=== PATIENT | male | born 1995 ===

== ENCOUNTER 2017-02-18 12:42 | Emergency (ER) | payer SELFPAY ==
[2017-02-18 12:54] VITALS: RESP 16; TEMP 99; O2SAT 97
--- NOTE | 2017-02-18 13:38 | EDPHY ---
H & P Time Seen by Provider: 02/18/17 13:30 HPI/ROS: CHIEF COMPLAINT: Chin laceration HISTORY OF PRESENT ILLNESS: Patient tripped and fell down landing on his chin at around midnight. He presents now for evaluation of his laceration. No jaw pain or difficulty chewing. No headache or neck or back pain. No loss of consciousness and no nausea vomiting. REVIEW OF SYSTEMS: Eye: no change in vision ENT: no sore throat Cardiac: no chest pain or syncope Pulmonary: no cough or SOB Abdomen: no vomiting, diarrhea, abdominal pain Musculoskeletal: no back pain Skin: HPI, chin laceration acne Neuro: no headache Constitutional: no fever : no urinary symptoms A comprehensive 10 point review of systems is otherwise negative aside from elements mentioned in the history of present illness. PAST MEDICAL HISTORY: Negative Social history: Nonsmoker General Appearance: Alert and conversant, cooperative. Eyes: No scleral icterus. ENT, Mouth: Normal mucous membranes. Jaw nontender. No intraoral bleeding. No raccoon eyes or Briggs sign. Respiratory: Normal respiratory effort, breath sounds equal, lungs are clear to auscultation. Cardiovascular: Regular rate and rhythm. Gastrointestinal: Abdomen is soft and non tender. Neurological: Alert and oriented x3. Normally conversant. Face symmetric, normal movement and sensation in all extremities. Skin: Acne, 1.5 cm chin laceration. Musculoskeletal: No spinal or extremity tenderness. Psychiatric: Not agitated. Emergency Department course/MDM: Cervical spine cleared clinically. Warned of slightly high risk of infection with 13 hours between injury and closure, however on the face I think that benefit outweighs risk. Wound is superficial, patient requests wound adhesive. Procedure: Laceration repair. Verbal consent was obtained from the patient. The 1.5 cm laceration on the chin was anesthetized using 0.5% bupivacaine with epinephrine. The wound was irrigated with standard emergency department protocol, draped and explored. There were no deep structures involved. No foreign body found. The wound was repaired with wound adhesive. The wound repair was simple. Excellent hemostasis was obtained. Wound care instructions were discussed and the patient was warned regarding scarring. The procedure was performed by myself. Smoking Status: Never smoked Constitutional: Initial Vital Signs Temperature (C) 37.2 C 02/18/17 12:52 Heart Rate 74 02/18/17 12:52 Respiratory Rate 16 02/18/17 12:52 Blood Pressure 141/67 H 02/18/17 12:52 O2 Sat (%) 97 02/18/17 12:52 O2 Delivery Mode Room Air Allergies/Adverse Reactions: No Known Allergies Allergy (Unverified 02/18/17 12:54) MDM/Departure - Depart Disposition: Home, Routine, Self-Care Clinical Impression: Chin laceration Qualifiers: Encounter type: initial encounter Qualified Code(s): S01.81XA - Laceration without foreign body of other part of head, initial encounter Condition: Good Instructions: Laceration (ED), Skin Adhesive Care (ED) Referrals: Wilian Bella MD [Medical Doctor] - As per Instructions
[2017-02-18] MEDS ORDERED: SKIN ADHESIVE (DERMABOND) 1 EACH TP ONE (13:50)
[2017-02-18 14:10] VITALS: BP 122/71; PULSE 70
== END 2017-02-18 14:09 | disposition home or self-care (01) ==
PROC: 0HQ1XZZ Repair Face Skin, External Approach (ICD-10-PCS; principal; 2017-02-18)
DX: S01.81XA Laceration without foreign body of other part of head, initial encounter (principal); W01.0XXA Fall on same level from slipping, tripping and stumbling without subsequent striking against object, initial encounter; Y99.8 Other external cause status